=== PATIENT | male | born 2000 | race Caucasian/White ===

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

== ENCOUNTER → 2022-03-23 | Outpatient (CLI) | payer OTHER ==
--- NOTE | 2022-03-23 12:25 | CA ---
Stress Echo Report Frankie Barger Age: 21 Gender: M : 2000 Exam Date: 03/23/2022 10:23 Exam Location: [place] [facility] Ht (in): 75 Wt (lb): 350 Ordering Physician: Filiberto Yang DO Referring Physician: Tonia Hills PAC Quiller Runner: Suraj Torres Technologist Procedure CPT: Indication: R07.89 chest pain ICD-9 Codes: Rhythm: Patient History: Cardiac Medications: NONE Medications in past 24 hours: Contrast: Lumason Stress Results Protocol: Edwardo Total dose(mL): Exercise Duration (min:sec): Max ST Depression (mm): Angina Score: Alcantar Score: METS: 10.3 Resting HR: 100 Resting BP: 128 / 48 Peak HR: 183 Peak BP: 206 / 61 Max Predicted HR: 199 92 % Max Predicted HR Target HR: 169 Double Product: [id number] Stress Summary: The patient's target heart rate was achieved The hemodynamic response to exercise was normal BP Response: Reason for Termination: Reached target heart rate or work-load Cardiac Symptoms: NO SYMPTOMS ECG Analysis Resting ECG: Normal sinus rhythm, normal ECG Stress ECG: No abnormal ST/T wave changes with exercise Arrhythmia: Occasional PVCs Echo Analysis Resting Echo: Normal global and regional wall motion at rest with a left ventricular ejection fraction of 55 %. Peak Echo Analysis: Normal global and regional wall motion with stress with a left ventricular ejection fraction of 70 %. MEASUREMENTS (Male/Female) Normal Values CONCLUSIONS 1. Average exercise tolerance with normal echocardiographic response to exercise 2. Normal stress echocardiogram with no evidence of stress- induced ischemia Dr. Honorio Joseph MD (Electronically Signed) Final Date: 23 March 2022 12:23
== END | disposition home or self-care (01) ==
LOC: RADNMMAIN 10:05
PROVIDERS: ATTEND Family Medicine
DX: R07.89 Other chest pain (principal)
CPT/HCPCS: C8930; Q9950; 93351